=== PATIENT | male | born 2000 | race Hispanic/Latino ===

== ENCOUNTER 2021-07-06 10:00 | Emergency (ER) | payer OTHER ==
[~2021-07-06] VITALS: Ht 177.8 cm; Wt 56.7 kg
[2021-07-06] MEDS ORDERED: FAMOTIDINE 20 MG TAB PO STA (10:41)
[2021-07-06] MEDS ORDERED: ONDANSETRON HCL 4 MG ORAL DISINTEGRATING TAB PO STA (10:41)
[2021-07-06] MEDS ORDERED: FAMOTIDINE 20 MG TAB ONE (11:06)
[2021-07-06] MEDS ORDERED: ONDANSETRON HCL 4 MG ORAL DISINTEGRATING TAB ONE (11:06)
== END 2021-07-06 12:05 | disposition home or self-care (01) ==
LOC: FSED 10:08
DX: R10.13 Epigastric pain (principal); K92.0 Hematemesis
CPT/HCPCS: 74176; 80053; 85025; 99283; Q0162